=== PATIENT | male | born 1955 | race Caucasian/White ===

== ENCOUNTER 2024-03-21 16:42 | Emergency (ER) | payer MEDICARE ==
[~2024-03-21] VITALS: Ht 175.3 cm; Wt 103.2 kg
[~2024-03-21 16:42] MED LIST: ALLOPURINOL300 M1 PO; ASPIRIN 81M81 MG/TA2 PO; CARAFATE 1GM1 G PO; CELEXA 20MG20 MG/TA1 PO; CLONIDINE HYDR0.2 MG PO; COZAAR100 MG PO; FUROSEMIDE20 MG PO; HYGROTON 2525 MG/TAB PO; KAPSPARGO SPRI100 MG PO; LIPITOR 40MG TA40 MG PO; NITROSTAT0.4 M1 SL; NORVASC 10MG10 MG PO; PROTONIX TR40 M1 PO; XARELTO20 MG PO; ZYRTEC10 M3 PO
[2024-03-21 17:47] VITALS: BP 127/79
== END 2024-03-21 17:50 | disposition home or self-care (01) ==
LOC: ED 16:42
DX: S61.412A Laceration without foreign body of left hand, initial encounter (principal); Z23 Encounter for immunization; W26.0XXA Contact with knife, initial encounter; Y93.89 Activity, other specified
CPT/HCPCS: 90715